=== PATIENT | female | born 1960 | race Caucasian/White ===

== ENCOUNTER → 2017-01-18 | Outpatient (CLI) | payer OTHER ==
[~2017-01-18] MED LIST: B-121000 MC1 PO; CALCIUM 600 +1 EAC5 PO; FISH OIL 1,0001 CAP PO; FISH OIL 1,0001 EAC4 PO; MAGNESIUM250 M1 PO; MULTIVITAMIN1 UDCAP PO; VITAMIN C500 MG PO; VITAMIN D-32000 UNI1 PO
--- NOTE | ~2017-01-18 | MY11 ---
[facility] A Service of [facility] RADIOLOGY TEXT RESULTS PATIENT: SHAYNA AGRG I LOCATION: [facility] : 56 UNIT #: [id number] AGE: [address]: Micheline Preciado SEX: F ORDER DR: [id number] [facility] [address] [place], [place] [address] [id number] O MR#: [id number] Acc #: [id number] NAME: SHAYNA GARG : 1960 SEX: F STUDY DATE/TIME: 01/18/2017 15:24 UNIT: [facility] ROOM: STUDY DESCRIPTION: MY Mammogram Screening Dig Juan Attending Physician: Micheline Preciado A.P.R.N. Referring Physician: Micheline Preciado A.P.R.N. Ordering Physician: Micheline Preciado A.P.R.N. Primary Care Physician: Avila Ramirez M.D. MEDICAL IMAGING REPORT This report is preliminary unless electronic signature is present EXAM Screening mammogram. DATE OF EXAM 01/18/2017 INDICATIONS 56-year-old with no personal or family history of breast cancer. No current complaints. TECHNIQUE Routine digital screening views of the breasts were obtained. The study was reviewed with an FDA-approved CAD device. COMPARISON Comparison is made with 12/23/2015, 11/30/2014. FINDINGS Breast parenchyma shows scattered fibroglandular densities. No new masses or suspicious microcalcifications are seen. Benign calcifications in both breasts are stable. IMPRESSION Benign mammogram. Routine screening in 1 year recommended. Patients over the age of 40 are entered into a reminder system with target due date for the next mammogram. A result letter will also be sent to the patient. BIRADS: 2 Benign findings. Dictated by... [facility] A Service [facility] RADIOLOGY TEXT RESULTS PATIENT: SHAYNA GARG I LOCATION: [facility] : 56 UNIT #: [id number] AGE: [address]: Micheline Preciado SEX: F ORDER DR: Da Larson Jr., M.D. THIS IS AN ELECTRONICALLY VERIFIED REPORT Da aLrson Jr., M.D. at 01/19/2017 10:14 AM ESTER/dawson TD: 01/18/2017 19:01 JOB #: [id number] MEDICAL IMAGING REPORT Page 1 of 1 COPY
== END | disposition home or self-care (01) ==
LOC: CWCC 14:57
DX: Z12.31 Encounter for screening mammogram for malignant neoplasm of breast (principal)
CPT/HCPCS: G0202

== ENCOUNTER → 2017-04-02 | Day surgery (SDC) | payer OTHER ==
--- NOTE | ~2017-04-02 | OR ---
Unit #: [id number] #: [id number] Patient: SHAYNA GARG I [id number] [address] [address] [id number] O MR#: [id number] NAME: SHAYNA GARG I. ROOM: Date of Procedure: 04/02/2017 Admission Date: 04/02/2017 Surgeon: Sonny May M.D. : 1960 Attending Physician: Sonny May M.D. Referring Physician: Sonny May M.D. Primary Care Physician: Avila Ramirez M.D. OPERATIVE REPORT PRIMARY CARE PHYSICIAN Avila Ramirez M.D. PREOPERATIVE DIAGNOSES Colorectal cancer screening in a high-risk patient. The patient has family history of colon cancer in her brother. PROCEDURE PERFORMED Colonoscopy up to cecum with excellent preparation and good visualization. POSTOPERATIVE DIAGNOSES The patient had moderate gutierrez-diverticulosis, otherwise examination normal up to cecum. No polyps were seen. The quality of the prep was excellent. RECOMMENDATIONS Repeat colonoscopy in 5 years. SEDATION USED MAC. DESCRIPTION OF PROCEDURE Following detailed explanation of the potential risks and complications of a colonoscopy, namely perforation, bleeding, and complications related to sedation, the patient was brought to GI lab and laid in the left lateral decubitus position. A digital rectal examination was performed, which was normal. Lubricated tip of the Olympus video colonoscope was inserted through the anus and advanced under direct vision. The scope was advanced and passed up to sigmoid into descending colon. Extensive diverticulosis noted in this area. The scope tip was then navigated all the way up to cecum with visualization of ileocecal valve and the appendiceal orifice. Preparation was excellent with good visualization and photodocumentation was obtained. Last few inches of the terminal ileum also visualized after intubation of the ileocecal valve and appeared normal. Successive segments of the colonic mucosa were examined upon withdrawal and appeared unremarkable except for presence of extensive gutierrez-diverticulosis. No polyps were seen. The patient did have small internal and external hemorrhoids at the anal verge. The scope was then withdrawn. The patient returned to recovery area. She tolerated the procedure without any postprocedure complications. Dictated by... Unit #: [id number] #: [id number] Patient: FOREST,Jonny Reddy TD: 04/02/2017 23:47 JOB #: [id number] OPERATIVE REPORT Page 1 of 1 X Sonny May MD PROCEDURE OPERATIVE NOTE
== END | disposition home or self-care (01) ==
LOC: COPS 11:34
PROVIDERS: Internal Medicine Gastroenterology
PROC: 0DJD8ZZ Inspection of Lower Intestinal Tract, Via Natural or Artificial Opening Endoscopic (ICD-10-PCS; principal; 2017-04-02 13:00)
DX: Z12.11 Encounter for screening for malignant neoplasm of colon (principal); Z80.0 Family history of malignant neoplasm of digestive organs; K57.30 Diverticulosis of large intestine without perforation or abscess without bleeding; K64.8 Other hemorrhoids; K64.4 Residual hemorrhoidal skin tags; K21.9 Gastro-esophageal reflux disease without esophagitis
CPT/HCPCS: J2250